=== PATIENT | male | born 1950 | race Caucasian/White ===

== ENCOUNTER 2021-03-03 21:25 | Emergency (ER) | payer BC, MEDICARE, OTHER ==
[~2021-03-03] VITALS: Ht 177.8 cm; Wt 79.4 kg
[2021-03-03 21:37] VITALS: BP_SYST 154
[2021-03-03] MEDS ORDERED: GABA-333 PO (21:53)
[2021-03-03] MEDS ORDERED: ESCI5SOL2 PO (21:53)
[2021-03-03] MEDS ORDERED: TIZA2CAP7 PO (21:53)
[2021-03-03] MEDS ORDERED: BUSP7.5T7 PO (21:53)
[2021-03-03] MEDS ORDERED: MORP60TA PO (21:53)
[2021-03-03] MEDS ORDERED: ROSU20TA32 PO (21:53)
[2021-03-03 22:07] LABS: BASOPHILS % (AUTO) 0.2 % (0.0-2.0); LYMPHOCYTES # (AUTO) 0.9 K/uL (1.0-5.5); LYMPHOCYTES % (AUTO) 7.9 % (20.5-51.5); MEAN CORPUSCULAR HEMOGLOBIN 29 pg (27-31); MEAN CORPUSCULAR HGB CONC 33 % (32-36); MEAN CORPUSCULAR VOLUME 86 fL (79.0-98.0); MONOCYTES # (AUTO) 0.9 K/uL (0.0-1.0); MONOCYTES % (AUTO) 8.2 % (1.7-9.3); NEUTROPHILS # (AUTO) 9.6 K/uL (1.8-7.7); NEUTROPHILS % (AUTO) 83.7 % (40.0-70.0); PLATELET COUNT (AUTO) 180 K/uL (130-430); RED BLOOD CELL COUNT(AUTO) 4.86 MIL/uL (4.2-6.2); RED CELL DISTRIBUTION WIDTH 13.3 % (9.0-15.0); WHITE BLOOD COUNT (AUTO) 11.4 K/uL (4.8-10.8)
[2021-03-03 22:17] LABS: C-REACTIVE PROTEIN QUANT 0.6 mg/dL (0-0.5)
[2021-03-03 22:19] LABS: POTASSIUM 3.9 mmol/L (3.5-5.1)
[2021-03-03 22:20] LABS: CALCIUM 8.4 mg/dL (8.4-11.0); CREATININE 1.13 mg/dL (0.55-1.30)
[2021-03-03 22:23] LABS: ALBUMIN 3.9 g/dL (3.4-4.8); PROTHROMBIN TIME 10.4 SECS (9.5-12.5)
[2021-03-03 22:45] LABS: BILIRUBIN,URINE NEGATIVE (NEGATIVE); CLARITY/URINE CLEAR (CLEAR); COLOR,URINE YELLOW (YELLOW); GLUCOSE,URINE NEGATIVE (NEGATIVE); KETONES,URINE NEGATIVE (NEGATIVE); LEUKOCYTE ESTERASE ,URINE NEGATIVE (NEGATIVE); NITRITE, URINE NEGATIVE (NEGATIVE); PH,URINE 5.5 (5.0-8.0); PROTEIN URINE NEGATIVE (NEGATIVE); UROBILINOGEN,URINE 0.2 (0.2-1.0)
[2021-03-03] MEDS ORDERED: MINERAL OIL 133 ML ENEMA RC ONE (22:45)
[2021-03-03] MEDS ORDERED: MAGNESIUM CITRATE 300 ML ORAL SOLUTION PO ONE (22:45)
[2021-03-03 22:49] LABS: BLOOD, URINE TRACE (NEGATIVE)
[2021-03-03 22:50] LABS: BACTERIA,URINE FEW /HPF (None Seen); WBC,URINE 0-3 /HPF (0-3)
[2021-03-03] MEDS ORDERED: CEPH500C2 PO (23:28)
[2021-03-03] MEDS ORDERED: cephALEXin 500 MG CAPSULE PO ONE (23:30)
[2021-03-04] MEDS ORDERED: PEG4000S4 PO (00:21)
[2021-03-04 00:53] VITALS: BP_SYST 154
== END 2021-03-04 00:53 | disposition home or self-care (01) ==
LOC: SED 21:25
DX: K59.03 Drug induced constipation (principal); T40.2X5A Adverse effect of other opioids, initial encounter; N39.0 Urinary tract infection, site not specified; Z20.822 Contact with and (suspected) exposure to COVID-19; Z79.899 Other long term (current) drug therapy; Y92.89 Other specified places as the place of occurrence of the external cause; Z88.8 Allergy status to other drugs, medicaments and biological substances
CPT/HCPCS: 36415; 76376; 80053; 81000; 82150; 83605; 83690; 85025; 85610-TC; 85730-TC; 86140; 99284

== ENCOUNTER 2021-03-05 10:00 | Emergency (ER) | payer MEDICARE ==
[~2021-03-05] VITALS: Ht 177.8 cm; Wt 79.4 kg
[2021-03-05 10:00] VITALS: BP_SYST 171
[~2021-03-05 10:00] MED LIST: BUSP7.5T7 PO; CEPH500C2 PO; ESCI5SOL2 PO; GABA-333 PO; MORP60TA PO; PEG4000S4 PO; ROSU20TA32 PO; TIZA2CAP7 PO
[2021-03-05 10:34] VITALS: BP_SYST 171
== END 2021-03-05 10:34 | disposition home or self-care (01) ==
LOC: SED 10:00
DX: Z46.6 Encounter for fitting and adjustment of urinary device (principal)
CPT/HCPCS: 99281